=== PATIENT | male | born 1960 | race Caucasian/White ===

== ENCOUNTER → 2017-05-20 | Outpatient (CLI) | payer OTHER ==
[~2017-05-20] MED LIST: ASPIRIN E.C. 8181 MG PO; CELEBREX 1100 MG/CAP PO; CRESTOR20 MG PO; CRESTOR40 MG PO; DESYREL 50MG50 MG PO; FISH OIL CONCEN1 SGL PO; FISH OIL500 MG PO; GLUCOSAMINE & C1 CA1 PO; GLUCOSAMINE CHO1 CA1 PO; GLUCOSAMINE500 M2 PO; LISINOPRIL10 MG PO; LORTAB 5/500 501 TAB PO; MOTRIN 800800 MG/TAB PO; OMEGA 31000 MG PO; SEPTRA DS 8001 TAB PO; SIMVASTATIN80 MG PO; TOPROL XL 50MG50 MG PO; TRAZODONE50 MG PO; ULTRAM 50MG TAB50 MG PO; VIAGRA 25MG TAB25 MG PO; VITAMIN D1000 IU PO; VITAMIN D32000 I1 PO; ZESTRIL 10MG10 MG PO; ZOCOR 40MG40 MG PO
== END ==
LOC: ZCOL.LAB 16:39
DX: T81.30XA Disruption of wound, unspecified, initial encounter (principal)

== ENCOUNTER → 2017-05-20 | Outpatient (CLI) | payer OTHER | LOC: WCC 11:41 | DX: T81.31XA Disruption of external operation (surgical) wound, not elsewhere classified, initial encounter (principal); Z79.82 Long term (current) use of aspirin | CPT/HCPCS: 17717; 21064; 27517; A6021; A6207; A6212; G0463 ==

== ENCOUNTER → 2017-05-27 | Outpatient (CLI) | payer OTHER | LOC: WCC 05-25 09:12 | DX: T81.31XA Disruption of external operation (surgical) wound, not elsewhere classified, initial encounter (principal) | CPT/HCPCS: 17717; 21064; 27510; A6021; A6197; A6212 ==

== ENCOUNTER → 2017-06-03 | Outpatient (CLI) | payer OTHER | LOC: WCC 06-02 10:04 | DX: T81.31XA Disruption of external operation (surgical) wound, not elsewhere classified, initial encounter (principal) | CPT/HCPCS: 17717; 27517; A6207; A6212; G0463 ==

== ENCOUNTER → 2017-06-17 | Outpatient (CLI) | payer OTHER | LOC: WCC 06-16 10:12 | DX: T81.31XA Disruption of external operation (surgical) wound, not elsewhere classified, initial encounter (principal) | CPT/HCPCS: 17717; A6212; G0463 ==

== ENCOUNTER 2017-06-19 15:30 | Outpatient (RCR) | payer MEDICARE, OTHER ==
[2017-08-05] MEDS ORDERED: MIRALAX PA17 GM/Dose PO (08:53)
[2017-08-05] MEDS ORDERED: OXY IR5 MG PO (08:54)
[2017-08-05] MEDS ORDERED: ROBAXIN 50500 MG/TAB PO (08:55)
[2017-08-05] MEDS ORDERED: PROTONIX 40MG T40 MG PO (08:56)
[2017-08-05] MEDS ORDERED: ACIPHEX20 MG PO (08:56)
[2017-08-05] MEDS ORDERED: REGLAN 10MG10 MG/TAB PO (08:56)
[2017-08-05] MEDS ORDERED: ZANTAC 150150 MG (08:57)
[2017-08-05] MEDS ORDERED: CARAFATE 1GM1 G PO (08:57)
[2017-08-05] MEDS ORDERED: FLOMAX 0.40.4 MG/CAP PO (08:58)
[2017-08-05] MEDS ORDERED: DULCOLAX STOOL100 MG PO (08:59)
[2017-08-05] MEDS ORDERED: BACTRIM DS 8001 TAB PO (13:13)
== END 2017-09-13 ==
LOC: WSPT
DX: M54.5 Low back pain (principal); M54.6 Pain in thoracic spine
CPT/HCPCS: G8978-GP; G8979-GP

== ENCOUNTER → 2017-06-19 | Outpatient (CLI) | payer OTHER | LOC: WCC 06-18 10:09 | DX: T81.31XA Disruption of external operation (surgical) wound, not elsewhere classified, initial encounter (principal) | CPT/HCPCS: 17716; A6212; G0463 ==

== ENCOUNTER → 2017-06-22 | Outpatient (CLI) | payer OTHER | LOC: WCC 10:52 | DX: T81.31XA Disruption of external operation (surgical) wound, not elsewhere classified, initial encounter (principal) | CPT/HCPCS: 17716; A6212; G0463 ==

== ENCOUNTER → 2017-07-23 | Outpatient (CLI) | payer OTHER | LOC: ZCOL.LAB 16:42 | DX: S31.609A Unspecified open wound of abdominal wall, unspecified quadrant with penetration into peritoneal cavity, initial encounter (principal) ==

== ENCOUNTER 2017-08-05 08:31 | Day surgery (SDC) | payer MEDICARE, OTHER ==
[~2017-08-05] VITALS: Ht 180.3 cm; Wt 87.7 kg
[2017-08-05] MEDS ORDERED: MIRALAX PA17 GM/Dose PO (08:53)
[2017-08-05] MEDS ORDERED: OXY IR5 MG PO (08:54)
[2017-08-05] MEDS ORDERED: ROBAXIN 50500 MG/TAB PO (08:55)
[2017-08-05] MEDS ORDERED: REGLAN 10MG10 MG/TAB PO (08:56)
[2017-08-05] MEDS ORDERED: ACIPHEX20 MG PO (08:56)
[2017-08-05] MEDS ORDERED: PROTONIX 40MG T40 MG PO (08:56)
[2017-08-05] MEDS ORDERED: CARAFATE 1GM1 G PO (08:57)
[2017-08-05] MEDS ORDERED: ZANTAC 150150 MG (08:57)
[2017-08-05] MEDS ORDERED: FLOMAX 0.40.4 MG/CAP PO (08:58)
[2017-08-05] MEDS ORDERED: DULCOLAX STOOL100 MG PO (08:59)
[2017-08-05 09:18] VITALS: BP 117/79; PULSE 68; TEMP 97.5
[2017-08-05 12:10] VITALS: BP 121/68; PULSE 72; TEMP 97.3
[2017-08-05 12:25] VITALS: BP 115/70; PULSE 66
[2017-08-05 12:40] VITALS: BP 120/73; PULSE 66
[2017-08-05 12:55] VITALS: BP 1115/72; PULSE 67
[2017-08-05] MEDS ORDERED: BACTRIM DS 8001 TAB PO (13:13)
[2017-08-05 13:25] VITALS: BP 112/64; PULSE 66
== END 2017-08-05 13:53 | disposition home or self-care (01) ==
LOC: SDCO 08:31
DX: L02.211 Cutaneous abscess of abdominal wall (principal); I25.10 Atherosclerotic heart disease of native coronary artery without angina pectoris; K21.9 Gastro-esophageal reflux disease without esophagitis; I10 Essential (primary) hypertension; I25.2 Old myocardial infarction; F41.9 Anxiety disorder, unspecified; Z98.52 Vasectomy status; Z82.3 Family history of stroke
CPT/HCPCS: J0690; J1100; J2370; J2405; J2704; J2765; J3010; J7120

== ENCOUNTER 2017-08-09 17:22 | Emergency (ER) | payer MEDICARE, OTHER ==
[~2017-08-09] VITALS: Ht 180.3 cm; Wt 86.4 kg
[~2017-08-09 17:22] MED LIST changes: +ACIPHEX20 MG PO; +BACTRIM DS 8001 TAB PO; +CARAFATE 1GM1 G PO; +DULCOLAX STOOL100 MG PO; +FLOMAX 0.40.4 MG/CAP PO; +MIRALAX PA17 GM/Dose PO; +OXY IR5 MG PO; +PROTONIX 40MG T40 MG PO; +REGLAN 10MG10 MG/TAB PO; +ROBAXIN 50500 MG/TAB PO; +ZANTAC 150150 MG
[2017-08-09 17:35] VITALS: BP 100/65
[2017-08-09 18:04] VITALS: PULSE 78; TEMP 98.2
== END 2017-08-09 18:10 | disposition home or self-care (01) ==
LOC: COL.ER 17:22
DX: S31.109D Unspecified open wound of abdominal wall, unspecified quadrant without penetration into peritoneal cavity, subsequent encounter (principal); I25.10 Atherosclerotic heart disease of native coronary artery without angina pectoris; I25.2 Old myocardial infarction; I10 Essential (primary) hypertension; K21.9 Gastro-esophageal reflux disease without esophagitis; Z87.891 Personal history of nicotine dependence; Z79.82 Long term (current) use of aspirin; X58.XXXD Exposure to other specified factors, subsequent encounter

== ENCOUNTER 2018-01-13 19:04 | Inpatient (IN) | payer MEDICARE, OTHER ==
[~2018-01-13] VITALS: Ht 180.3 cm; Wt 88.4 kg
[2018-01-13 19:48] LABS: BASO % 0.3 % (0.0-2.0); EOS % 0.3 % (0-4.0); GRAN # 10.3 (1.4-6.5); GRAN % 87.7 % (42.2-75.2); HEMATOCRIT 49.4 % (42.0-52.0); HEMOGLOBIN 16.6 g/dl (13.5-18.0); LYMPH # 0.7 (1.2-3.4); LYMPH % 5.8 % (20.0-51.0); MEAN CELL VOLUME 88 fl (80.0-100.0); MEAN CORPUSCULAR HEMOGLOBIN 30 pg (27.0-31.0); MEAN CORPUSCULAR HGB CONC 34 g/dl (33.0-37.0); MEAN PLATELET VOLUME 10.6 fl (7.4-10.4); MONO # 0.7 (0.1-0.6); MONO % 5.5 % (1.7-9.3); PLATELET COUNT 180 K/mm3 (130-400); RED BLOOD COUNT 5.62 M/mm3 (4.20-5.60); REDCELL DISTRIBUTION WIDTH-CV 14.4 % (11.5-14.5)
[2018-01-13 19:59] LABS: BILIRUBIN,TOTAL 0.7 mg/dL (0.0-1.0); C-REACTIVE PROTEIN 0.6 mg/dL (0.0-0.9); CALCIUM 9.4 mg/dL (8.4-10.2); CREATININE, serum 0.77 mg/dL (0.66-1.25); TOTAL PROTEIN 7.9 gm/dL (6.4-8.2)
[2018-01-13 21:51] VITALS: BP 133/88; PULSE 81; TEMP 98.9
[2018-01-14 03:58] VITALS: BP 133/67; PULSE 72; TEMP 98.5
[2018-01-14 05:46] LABS: COLLECTION METHOD CLEAN CATCH
[2018-01-14 06:06] LABS: MUCOUS Present /lpf; PH 5 (5-8); SQUAMOUS EPITHELIAL None Seen /hpf; URINE APPEARANCE Clear; URINE BACTERIA None Seen /hpf; URINE BILIRUBIN Negative (NEGATIVE); URINE BLOOD Negative (NEGATIVE); URINE COLOR Yellow; URINE GLUCOSE Negative (NEGATIVE); URINE KETONE 1+ (NEGATIVE); URINE LEUKOCYTE ESTERASE Negative (NEGATIVE); URINE NITRATE Negative (NEGATIVE); URINE PROTEIN(semi-quant) Negative (NEGATIVE); URINE RBC 0-2 /hpf; URINE UROBILINOGEN >=4.0 mg/dL (NEGATIVE)
[2018-01-14 06:17] LABS: BASO % 0.6 % (0.0-2.0); EOS # 0.1 (0.0-0.7); GRAN # 4.8 (1.4-6.5); GRAN % 67.7 % (42.2-75.2); HEMATOCRIT 44.6 % (42.0-52.0); HEMOGLOBIN 14.7 g/dl (13.5-18.0); LYMPH # 1.6 (1.2-3.4); LYMPH % 22.6 % (20.0-51.0); MEAN CELL VOLUME 90 fl (80.0-100.0); MEAN CORPUSCULAR HEMOGLOBIN 30 pg (27.0-31.0); MEAN CORPUSCULAR HGB CONC 33 g/dl (33.0-37.0); MONO # 0.6 (0.1-0.6); PLATELET COUNT 163 K/mm3 (130-400); RED BLOOD COUNT 4.96 M/mm3 (4.20-5.60); REDCELL DISTRIBUTION WIDTH-CV 14.5 % (11.5-14.5)
[2018-01-14 07:12] VITALS: BP 123/77; PULSE 70; TEMP 99
[2018-01-14 11:21] VITALS: BP 121/66; PULSE 70; TEMP 98.2
[2018-01-14 15:19] VITALS: BP 116/68; PULSE 65; TEMP 98
[2018-01-14 20:17] VITALS: BP 121/68; PULSE 68; TEMP 98
[2018-01-15 00:02] VITALS: BP 123/68; PULSE 67; TEMP 98.2
[2018-01-15 05:05] VITALS: BP 117/64; PULSE 74; TEMP 98.6
[2018-01-15 07:15] LABS: BASO % 0.5 % (0.0-2.0); EOS # 0.1 (0.0-0.7); EOS % 3.6 % (0-4.0); GRAN % 51.4 % (42.2-75.2); HEMATOCRIT 37.3 % (42.0-52.0); LYMPH # 1.3 (1.2-3.4); LYMPH % 33.9 % (20.0-51.0); MEAN CELL VOLUME 91 fl (80.0-100.0); MEAN CORPUSCULAR HEMOGLOBIN 30 pg (27.0-31.0); MEAN CORPUSCULAR HGB CONC 33 g/dl (33.0-37.0); MONO # 0.4 (0.1-0.6); MONO % 10.3 % (1.7-9.3); PLATELET COUNT 117 K/mm3 (130-400); REDCELL DISTRIBUTION WIDTH-CV 14.2 % (11.5-14.5)
[2018-01-15 07:20] LABS: HEMOGLOBIN 12.4 g/dl (13.5-18.0)
[2018-01-15 07:30] LABS: CALCIUM 8.2 mg/dL (8.4-10.2); CREATININE, serum 0.69 mg/dL (0.66-1.25); POTASSIUM 3.4 mmol/L (3.4-5.0)
[2018-01-15 08:07] VITALS: BP 127/69; PULSE 59; TEMP 97.7
== END 2018-01-15 15:47 | disposition home or self-care (01) | DRG 390 ==
LOC: COL.ER 19:04 → SURG 21:10
PROVIDERS: Family Medicine; Surgery
DX: K56.600 Partial intestinal obstruction, unspecified as to cause (principal); I10 Essential (primary) hypertension; Z95.5 Presence of coronary angioplasty implant and graft; Z98.84 Bariatric surgery status; Z87.891 Personal history of nicotine dependence; G89.29 Other chronic pain
CPT/HCPCS: J1170; J2405; J7030; J7120

== ENCOUNTER 2018-07-11 18:07 | Emergency (ER) | payer MEDICARE, OTHER ==
[~2018-07-11] VITALS: Ht 180.3 cm; Wt 81.8 kg
[2018-07-11 18:14] VITALS: TEMP 97.7
[2018-07-11 18:30] LABS: COLLECTION METHOD CLEAN CATCH
[2018-07-11 18:32] LABS: BASO % 0.8 % (0.0-2.0); EOS # 0.1 (0.0-0.7); EOS % 2.4 % (0-4.0); GRAN # 2.5 (1.4-6.5); GRAN % 50.2 % (42.2-75.2); HEMATOCRIT 44.7 % (42.0-52.0); HEMOGLOBIN 14.9 g/dl (13.5-18.0); LYMPH % 38.5 % (20.0-51.0); MEAN CELL VOLUME 90 fl (80.0-100.0); MEAN CORPUSCULAR HEMOGLOBIN 30 pg (27.0-31.0); MEAN CORPUSCULAR HGB CONC 33 g/dl (33.0-37.0); MEAN PLATELET VOLUME 9.5 fl (7.4-10.4); MONO # 0.4 (0.1-0.6); MONO % 7.9 % (1.7-9.3); PLATELET COUNT 178 K/mm3 (130-400); RED BLOOD COUNT 4.98 M/mm3 (4.20-5.60); REDCELL DISTRIBUTION WIDTH-CV 15.9 % (11.5-14.5)
[2018-07-11 18:44] LABS: CALCIUM 9.4 mg/dL (8.4-10.2); CREATININE, serum 0.8 mg/dL (0.66-1.25); POTASSIUM 4.1 mmol/L (3.4-5.0)
[2018-07-11] MEDS ORDERED: ZOFRAN 4MG T4 MG/TAB PO (18:46)
[2018-07-11] MEDS ORDERED: NORCO 325 MG-51 TAB PO (18:46)
[2018-07-11 18:48] LABS: MUCOUS Present /lpf; PH 7 (5-8); SQUAMOUS EPITHELIAL None Seen /hpf; URINE APPEARANCE Hazy; URINE BACTERIA Rare /hpf; URINE BILIRUBIN Negative (NEGATIVE); URINE BLOOD 3+ (NEGATIVE); URINE COLOR Yellow; URINE GLUCOSE Negative (NEGATIVE); URINE KETONE Negative (NEGATIVE); URINE LEUKOCYTE ESTERASE Negative (NEGATIVE); URINE NITRATE Negative (NEGATIVE); URINE PROTEIN(semi-quant) Negative (NEGATIVE); URINE RBC >50 /hpf
[2018-07-11 19:28] VITALS: BP 133/87; PULSE 66
== END 2018-07-11 19:31 | disposition home or self-care (01) ==
LOC: COL.ER 18:07
PROVIDERS: Emergency Medicine
DX: N20.1 Calculus of ureter (principal); N23 Unspecified renal colic; Z79.82 Long term (current) use of aspirin
CPT/HCPCS: J1170; J1885; J2550

== ENCOUNTER 2019-10-19 14:00 | Outpatient (RCR) | payer MEDICARE, OTHER ==
[~2019-10-19 14:00] MED LIST changes: +NORCO 325 MG-51 TAB PO; +ZOFRAN 4MG T4 MG/TAB PO
== END 2019-10-27 07:59 | disposition home or self-care (01) ==
LOC: WSC 14:00
DX: M51.36 Other intervertebral disc degeneration, lumbar region (principal)

== ENCOUNTER 2020-02-13 11:49 | Emergency (ER) | payer MEDICARE, OTHER ==
[~2020-02-13] VITALS: Ht 180.3 cm; Wt 80.0 kg
[~2020-02-13 11:49] MED LIST changes: +COREG 3.123.125 MG/T PO; +MULTI VITAMINS1 TAB PO; +NAPROSYN 2250 MG/TAB PO; +PRILOTC PO
[2020-02-13 11:59] VITALS: TEMP 97.6
[2020-02-13] MEDS ORDERED: FLEXERIL 1010 MG/TAB PO (12:17)
[2020-02-13] MEDS ORDERED: PREDNISONE20 MG PO (12:17)
[2020-02-13 12:46] LABS: BASO % 0.7 % (0.0-2.0); EOS # 0.2 (0.0-0.7); EOS % 4.1 % (0-4.0); GRAN # 2.5 (1.4-6.5); GRAN % 56.6 % (42.2-75.2); HEMATOCRIT 40.5 % (42.0-52.0); HEMOGLOBIN 13.1 g/dl (13.5-18.0); LYMPH # 1.2 (1.2-3.4); LYMPH % 26.4 % (20.0-51.0); MEAN CELL VOLUME 89 fl (80.0-100.0); MEAN CORPUSCULAR HEMOGLOBIN 29 pg (27.0-31.0); MEAN CORPUSCULAR HGB CONC 32 g/dl (33.0-37.0); MEAN PLATELET VOLUME 10.4 fl (7.4-10.4); MONO # 0.5 (0.1-0.6); PLATELET COUNT 135 K/mm3 (130-400); RED BLOOD COUNT 4.57 M/mm3 (4.20-5.60); REDCELL DISTRIBUTION WIDTH-CV 13.7 % (11.5-14.5)
[2020-02-13 13:07] LABS: ALANINE AMINOTRANSFERASE 13 U/L (4-49); ALBUMIN 3.8 gm/dL (3.5-5.0); ALKALINE PHOSPHATASE 58 U/L (50-136); ANION GAP 6 mmol/L (7-16); AST,SGOT 20 U/L (15-37); BILIRUBIN,TOTAL 0.5 mg/dL (0.0-1.0); BLOOD UREA NITROGEN 23 mg/dL (9-20); CALCIUM 9.2 mg/dL (8.4-10.2); CARBON DIOXIDE 26 mmol/L (22-30); CHLORIDE 106 mmol/L (98-107); CREATININE, serum 0.94 (0.66-1.25); GLUCOSE 104 mg/dL (74-106); POTASSIUM 3.9 mmol/L (3.4-5.0); SODIUM 138 mmol/L (137-145); TOTAL PROTEIN 7.1 gm/dL (6.4-8.2)
[2020-02-13 13:50] LABS: TROPONIN-I < 0.012 ng/mL (0.000-0.035)
[2020-02-13 14:45] VITALS: BP 117/80; PULSE 71
== END 2020-02-13 14:45 | disposition home or self-care (01) ==
LOC: COL.ER 11:49
PROVIDERS: Emergency Medicine
DX: M54.12 Radiculopathy, cervical region (principal); I10 Essential (primary) hypertension; I25.10 Atherosclerotic heart disease of native coronary artery without angina pectoris; Z79.82 Long term (current) use of aspirin; Z95.5 Presence of coronary angioplasty implant and graft
CPT/HCPCS: J1170; J1885; J2270

== ENCOUNTER 2020-02-18 16:27 | Emergency (ER) | payer MEDICARE, OTHER ==
[~2020-02-18] VITALS: Ht 180.3 cm; Wt 81.8 kg
[~2020-02-18 16:27] MED LIST changes: +FLEXERIL 1010 MG/TAB PO; +PREDNISONE20 MG PO
[2020-02-18 16:31] VITALS: BP 116/76; TEMP 97.8
[2020-02-18] MEDS ORDERED: NORCO 325 MG-51 TAB PO (16:46)
[2020-02-18] MEDS ORDERED: ROBAXIN 75750 MG/TAB PO (16:46)
[2020-02-18 16:56] VITALS: PULSE 86
== END 2020-02-18 16:56 | disposition home or self-care (01) ==
LOC: COL.ER 16:27
DX: M54.12 Radiculopathy, cervical region (principal); I25.2 Old myocardial infarction; Z79.82 Long term (current) use of aspirin; Z87.891 Personal history of nicotine dependence; Z98.84 Bariatric surgery status

== ENCOUNTER 2020-02-26 15:28 | Emergency (ER) | payer MEDICARE, OTHER ==
[~2020-02-26] VITALS: Ht 180.3 cm; Wt 81.8 kg
[~2020-02-26 15:28] MED LIST changes: +ROBAXIN 75750 MG/TAB PO
[2020-02-26 15:35] VITALS: BP 118/83; PULSE 90; TEMP 98.4
[2020-02-26] MEDS ORDERED: LIORESAL 1010 MG/TAB PO (16:06)
== END 2020-02-26 16:32 | disposition home or self-care (01) ==
LOC: COL.ER 15:28
DX: M54.2 Cervicalgia (principal); M54.9 Dorsalgia, unspecified; I25.2 Old myocardial infarction; F17.210 Nicotine dependence, cigarettes, uncomplicated

== ENCOUNTER → 2020-03-08 | Outpatient (CLI) | payer MEDICARE, OTHER ==
[~2020-03-08] MED LIST changes: +LIORESAL 1010 MG/TAB PO
== END ==
LOC: COL.RAD 09:54
DX: M47.812 Spondylosis without myelopathy or radiculopathy, cervical region (principal); M48.02 Spinal stenosis, cervical region

== ENCOUNTER 2021-05-26 18:33 | Emergency (ER) | payer MEDICARE, OTHER ==
[~2021-05-26] VITALS: Ht 180.3 cm; Wt 77.3 kg
[2021-05-26 19:16] LABS: BASO # 0.1 (0.0-0.2); BASO % 0.9 % (0.0-2.0); EOS # 0.2 (0.0-0.7); EOS % 2.6 % (0-4.0); GRAN % 73.8 % (42.2-75.2); HEMOGLOBIN 12.3 g/dl (13.5-18.0); LYMPH # 1.1 (1.2-3.4); LYMPH % 15.8 % (20.0-51.0); MEAN CELL VOLUME 84 fl (80.0-100.0); MEAN CORPUSCULAR HEMOGLOBIN 26 pg (27.0-31.0); MEAN CORPUSCULAR HGB CONC 32 g/dl (33.0-37.0); MEAN PLATELET VOLUME 9.8 fl (7.4-10.4); MONO # 0.5 (0.1-0.6); MONO % 6.6 % (1.7-9.3); PLATELET COUNT 153 K/mm3 (130-400); RED BLOOD COUNT 4.66 M/mm3 (4.20-5.60); REDCELL DISTRIBUTION WIDTH-CV 14.2 % (11.5-14.5)
[2021-05-26 19:29] LABS: ALANINE AMINOTRANSFERASE 16 U/L (4-49); ALKALINE PHOSPHATASE 63 U/L (50-136); ANION GAP 8 mmol/L (7-16); AST,SGOT 25 U/L (15-37); BILIRUBIN,TOTAL 0.4 mg/dL (0.0-1.0); BLOOD UREA NITROGEN 17 mg/dL (9-20); CALCIUM 9.1 mg/dL (8.4-10.2); CARBON DIOXIDE 27 mmol/L (22-30); CHLORIDE 105 mmol/L (98-107); CREATININE, serum 1.35 (0.66-1.25); GLUCOSE 105 mg/dL (74-106); LIPASE 121 U/L (23-300); POTASSIUM 4.2 mmol/L (3.4-5.0); SODIUM 140 mmol/L (137-145); TOTAL PROTEIN 7.2 gm/dL (6.4-8.2)
[2021-05-26 19:30] LABS: C-REACTIVE PROTEIN < 0.5 mg/dL (0.0-0.9)
[2021-05-26 20:00] LABS: COLLECTION METHOD CLEAN CATCH
[2021-05-26 20:07] LABS: MUCOUS Present /lpf; PH 6 (5-8); SQUAMOUS EPITHELIAL None Seen /hpf; URINE APPEARANCE Cloudy; URINE BACTERIA None Seen /hpf; URINE BILIRUBIN Negative (NEGATIVE); URINE BLOOD 3+ (NEGATIVE); URINE COLOR Red; URINE GLUCOSE Negative (NEGATIVE); URINE KETONE Negative (NEGATIVE); URINE LEUKOCYTE ESTERASE Negative (NEGATIVE); URINE NITRATE Negative (NEGATIVE); URINE PROTEIN(semi-quant) 2+ (NEGATIVE); URINE RBC >50 /hpf; URINE UROBILINOGEN Negative (NEGATIVE)
[2021-05-26 21:12] VITALS: BP 124/86; PULSE 62; TEMP 97.8
== END 2021-05-26 21:21 | disposition home or self-care (01) ==
LOC: COL.ER 18:33
PROVIDERS: Family Medicine
DX: N20.1 Calculus of ureter (principal)
CPT/HCPCS: J1885; J2405; J7120

== ENCOUNTER 2021-09-02 11:29 | Emergency (ER) | payer MEDICARE, OTHER ==
[~2021-09-02] VITALS: Ht 180.3 cm; Wt 75.5 kg
[2021-09-02 12:10] LABS: COLLECTION METHOD CLEAN CATCH
[2021-09-02 12:26] LABS: AMORPHOUS CRYSTAL Present (NOT PRESENT); SQUAMOUS EPITHELIAL None Seen /hpf (0-10); URINE BACTERIA Rare /hpf (NONE SEEN); URINE RBC >50 /hpf (0-2)
[2021-09-02 12:27] LABS: URINE APPEARANCE Cloudy (CLEAR/HAZY); URINE COLOR Yellow (YELLOW)
[2021-09-02 12:28] LABS: PH 7 (5-8); URINE BILIRUBIN Negative (NEGATIVE); URINE BLOOD 2+ (NEGATIVE); URINE GLUCOSE Negative (NEGATIVE); URINE KETONE Trace (NEGATIVE); URINE LEUKOCYTE ESTERASE Negative (NEGATIVE); URINE NITRATE Negative (NEGATIVE); URINE PROTEIN(semi-quant) Negative (NEGATIVE); URINE UROBILINOGEN Negative (NEGATIVE)
[2021-09-02 13:30] LABS: BASO % 0.5 % (0.0-2.0); EOS % 0.6 % (0.0-4.0); GRAN # 4.8 K/mm3 (1.4-6.5); GRAN % 75.7 % (42.2-75.2); HEMATOCRIT 41.3 % (42.0-52.0); HEMOGLOBIN 13.2 g/dl (13.5-18.0); LYMPH # 0.9 K/mm3 (1.2-3.4); LYMPH % 13.3 % (20.0-51.0); MEAN CELL VOLUME 78 fl (80.0-100.0); MEAN CORPUSCULAR HEMOGLOBIN 25 pg (27-31); MEAN CORPUSCULAR HGB CONC 32 g/dl (33.0-37.0); MONO # 0.6 K/mm3 (0.1-0.6); MONO % 9.7 % (1.7-9.3); PLATELET COUNT 173 K/mm3 (130-400); RED BLOOD COUNT 5.29 M/mm3 (4.20-5.60); REDCELL DISTRIBUTION WIDTH-CV 14.8 % (11.5-14.5)
[2021-09-02 13:47] LABS: ALBUMIN 3.6 gm/dL (3.4-4.8); BILIRUBIN,TOTAL 0.6 mg/dL (0.2-1.2); C-REACTIVE PROTEIN 0.73 mg/dL (0.00-0.50); CALCIUM 9.6 mg/dL (8.4-10.2); CREATININE, serum 1.69 mg/dL (0.72-1.25); POTASSIUM 4.2 mmol/L (3.5-4.5); TOTAL PROTEIN 7.7 gm/dL (6.2-8.1)
[2021-09-02] MEDS ORDERED: PERCOCET 325 MG1 TA2 PO (16:08)
[2021-09-02] MEDS ORDERED: OMNICEF 300MG300 MG PO (16:09)
[2021-09-02 16:16] VITALS: BP 132/75; PULSE 77; TEMP 98.2
== END 2021-09-02 16:19 | disposition home or self-care (01) ==
LOC: COL.ER 11:29
PROVIDERS: Family Medicine
DX: N13.2 Hydronephrosis with renal and ureteral calculous obstruction (principal); I25.10 Atherosclerotic heart disease of native coronary artery without angina pectoris; I25.2 Old myocardial infarction; Z79.82 Long term (current) use of aspirin
CPT/HCPCS: J1885; J2270; J2405; J7120; Q9967

== ENCOUNTER 2021-09-03 09:56 | Day surgery (SDC) | payer MEDICARE, OTHER ==
[~2021-09-03] VITALS: Ht 180.3 cm; Wt 74.5 kg
[~2021-09-03 09:56] MED LIST changes: +OMNICEF 300MG300 MG PO; +PERCOCET 325 MG1 TA2 PO
[2021-09-03 10:42] VITALS: BP 106/82; PULSE 95; TEMP 97.5
[2021-09-03 11:42] VITALS: TEMP 98
[2021-09-03 12:00] VITALS: BP 109/66; PULSE 65
--- NOTE | 2021-09-03 12:00 | NUR ---
Patient to room 8 per cart from PACU accompanied by Eneida BALDWIN and is awake and alert. Temp 97.1 and room air sats 96%. Eating ice chips. IV fluids infusing. Denies pain or nausea. Siderails up x2 and call light in reach. Allowed to rest.
[2021-09-03 12:15] VITALS: BP 102/71; PULSE 66
--- NOTE | 2021-09-03 12:15 | NUR ---
IV to INT and assisted patient up to the bathroom. Gait is steady. Voids and returns to room. Given muffin to eat and glass of water.
[2021-09-03 12:30] VITALS: BP 102/68; PULSE 61
--- NOTE | 2021-09-03 12:30 | NUR ---
Resting and denies pain or nausea. Room air sats 98%. Tolerates snack well.
--- NOTE | 2021-09-03 12:43 | NUR ---
INT discontinued and site is free of redness or swelling. Dresses self. Daughter here for ride home.
--- NOTE | 2021-09-03 12:50 | NUR ---
Dismissal instructions given and voices understanding of these. Provided office number for questions and concerns.
--- NOTE | 2021-09-03 12:53 | NUR ---
Patient dismissed to home driven by daughter and assisted into vehicle with instructions in hand.
== END 2021-09-03 12:53 | disposition home or self-care (01) ==
LOC: SDCO 09:56
DX: N13.0 Hydronephrosis with ureteropelvic junction obstruction (principal); I10 Essential (primary) hypertension; I25.10 Atherosclerotic heart disease of native coronary artery without angina pectoris; I25.2 Old myocardial infarction; G89.29 Other chronic pain; E78.5 Hyperlipidemia, unspecified; K21.9 Gastro-esophageal reflux disease without esophagitis; Z95.818 Presence of other cardiac implants and grafts; Z87.891 Personal history of nicotine dependence; Z79.82 Long term (current) use of aspirin; Z79.899 Other long term (current) drug therapy; Z79.1 Long term (current) use of non-steroidal anti-inflammatories (NSAID); Z79.891 Long term (current) use of opiate analgesic
CPT/HCPCS: C1769; J0690; J1100; J1885; J2250; J2405; J2704; J3010; J7120; Q9967

== ENCOUNTER 2021-10-07 17:50 | Emergency (ER) | payer MEDICARE, OTHER ==
[~2021-10-07] VITALS: Ht 180.3 cm; Wt 75.0 kg
[2021-10-07 17:55] VITALS: BP 133/80; PULSE 70; TEMP 97.7
== END 2021-10-07 19:36 | disposition home or self-care (01) ==
LOC: COL.ER 17:50
DX: S20.20XA Contusion of thorax, unspecified, initial encounter (principal); I10 Essential (primary) hypertension; I25.2 Old myocardial infarction; Z79.82 Long term (current) use of aspirin; Z79.899 Other long term (current) drug therapy; W22.8XXA Striking against or struck by other objects, initial encounter

== ENCOUNTER 2021-10-23 20:02 | Emergency (ER) | payer MEDICARE, OTHER ==
[~2021-10-23] VITALS: Ht 180.3 cm; Wt 82.3 kg
[2021-10-23 20:36] LABS: BASO % 0.7 % (0.0-2.0); EOS # 0.2 K/mm3 (0.0-0.7); EOS % 2.4 % (0.0-4.0); GRAN # 4.2 K/mm3 (1.4-6.5); GRAN % 68.6 % (42.2-75.2); HEMATOCRIT 40.2 % (42.0-52.0); HEMOGLOBIN 12.9 g/dl (13.5-18.0); LYMPH # 1.3 K/mm3 (1.2-3.4); LYMPH % 21.2 % (20.0-51.0); MEAN CELL VOLUME 79 fl (80.0-100.0); MEAN CORPUSCULAR HEMOGLOBIN 25 pg (27-31); MEAN CORPUSCULAR HGB CONC 32 g/dl (33.0-37.0); MEAN PLATELET VOLUME 9.8 fl (7.4-10.4); MONO # 0.4 K/mm3 (0.1-0.6); MONO % 6.9 % (1.7-9.3); PLATELET COUNT 174 K/mm3 (130-400); RED BLOOD COUNT 5.12 M/mm3 (4.20-5.60)
[2021-10-23 20:52] LABS: ALBUMIN 3.1 gm/dL (3.4-4.8); BILIRUBIN,TOTAL 0.3 mg/dL (0.2-1.2); C-REACTIVE PROTEIN 3.2 mg/dL (0.00-0.50); CREATININE, serum 0.93 mg/dL (0.72-1.25); POTASSIUM 5.1 mmol/L (3.5-4.5); TOTAL PROTEIN 7.6 gm/dL (6.2-8.1)
[2021-10-23 23:50] VITALS: BP 113/69; PULSE 63; TEMP 97.6
== END 2021-10-24 00:03 | disposition home or self-care (01) ==
LOC: COL.ER 20:02
PROVIDERS: Emergency Medicine
DX: K59.00 Constipation, unspecified (principal); I10 Essential (primary) hypertension; I25.2 Old myocardial infarction; E78.00 Pure hypercholesterolemia, unspecified; Z98.84 Bariatric surgery status; Z95.5 Presence of coronary angioplasty implant and graft; Z98.52 Vasectomy status; Z98.890 Other specified postprocedural states; Z79.82 Long term (current) use of aspirin
CPT/HCPCS: J2212; J2270; J7030; Q9967

== ENCOUNTER → 2021-12-31 | Outpatient (CLI) | payer MEDICARE, OTHER ==
[~2021-12-31] MED LIST changes: +CELEBREX 200MG200 MG PO; +CEPHALEXIN500 M1 PO; +CYMBALTA 60MG60 MG PO; +DESOWEN0.05% TP; +DIPROLENE CR15GM TP; +NAPROSYN500 MG PO; +UROCIT-K 1010 MEQ PO; +VITAMIN D31000 I1 PO; +[UNRECOGNIZED DRUG - OTHER] PO
== END ==
LOC: ZCOL.LAB 15:47
DX: S31.109A Unspecified open wound of abdominal wall, unspecified quadrant without penetration into peritoneal cavity, initial encounter (principal)

== ENCOUNTER 2022-01-16 09:28 | Day surgery (SDC) | payer MEDICARE, OTHER ==
[~2022-01-16] VITALS: Ht 180.3 cm; Wt 79.4 kg
[~2022-01-16 09:28] MED LIST changes: -CELEBREX 200MG200 MG PO; -CEPHALEXIN500 M1 PO; -CYMBALTA 60MG60 MG PO; -DESOWEN0.05% TP; -DIPROLENE CR15GM TP; -UROCIT-K 1010 MEQ PO; -VITAMIN D31000 I1 PO; -[UNRECOGNIZED DRUG - OTHER] PO
[2022-01-16] MEDS ORDERED: DIPROLENE CR15GM TP (10:35)
[2022-01-16] MEDS ORDERED: [UNRECOGNIZED DRUG - OTHER] PO (10:35)
[2022-01-16] MEDS ORDERED: VITAMIN D31000 I1 PO (10:37)
[2022-01-16] MEDS ORDERED: CELEBREX 200MG200 MG PO (10:39)
[2022-01-16] MEDS ORDERED: CEPHALEXIN500 M1 PO (10:39)
[2022-01-16] MEDS ORDERED: CYMBALTA 60MG60 MG PO (10:44)
[2022-01-16] MEDS ORDERED: UROCIT-K 1010 MEQ PO (10:44)
[2022-01-16] MEDS ORDERED: DESYREL 50MG50 MG PO (10:45)
[2022-01-16] MEDS ORDERED: DESOWEN0.05% TP (10:46)
[2022-01-16 10:53] VITALS: BP 141/78; PULSE 56; TEMP 97.3
[2022-01-16 12:30] VITALS: BP 128/77; PULSE 61; TEMP 97.4
[2022-01-16 12:45] VITALS: BP 135/79; PULSE 57
[2022-01-16 12:58] VITALS: BP 136/77; PULSE 56
--- NOTE | 2022-01-16 13:15 | NUR ---
1230 PT RETURNED TO BAY 6 VIA CART. ALERT AND ORIENTED. MONITORS ATTACHED, INTERVALS AND ALARMS SET. VSS. PT DENIES PAIN OR NAUSEA. OPERATIVE SITE CLEAN AND DRY. CRACKERS AND WATER PROVIDED. 1240 DR. CALDERON CALLED FOR CLARIFICATION ON DAILY WOUND PACKING INSTRUCTIONS WITH GLENNY IN PLACE. 1245 VSS. PT TOLERATING FOOD AND DRINK WELL. DR. CALDERON IN TO SPEAK WITH PT AND FAMILY ABOUT DRESSING CHANGE. 1258 PT REQUEST TO GET UP TO RESTROOM. VSS. IV REMOVED WITHOUT COMPLCAITONS. PT UP TO RESTROOM, ABLE TO VOID WIHTOUT DIFFICULTY. PT ALLOWED TO DRESS. REVIEWED DISCHARGE INSTRUCTIONS AND EDUCATION PACKET, ANSWERED ALL QUESTIONS. 1315 PT TRANSFERED VIA HWEELCHAIR TO [employer] VEHICLE TO BE DRIVEN HOME BY DAUGHTER.
[2022-01-16 14:23] VITALS: BP 133/83; PULSE 58
== END 2022-01-16 13:15 | disposition home or self-care (01) ==
LOC: SDCO 09:28
DX: L02.211 Cutaneous abscess of abdominal wall (principal); K21.9 Gastro-esophageal reflux disease without esophagitis
CPT/HCPCS: J2704; J3010; J7120

== ENCOUNTER → 2022-02-11 | Outpatient (CLI) | payer MEDICARE, OTHER ==
[~2022-02-11] MED LIST changes: +CELEBREX 200MG200 MG PO; +CEPHALEXIN500 M1 PO; +CYMBALTA 60MG60 MG PO; +DESOWEN0.05% TP; +DIPROLENE CR15GM TP; +UROCIT-K 1010 MEQ PO; +VITAMIN D31000 I1 PO; +[UNRECOGNIZED DRUG - OTHER] PO
== END ==
LOC: ZCOL.LAB 16:23
DX: L02.211 Cutaneous abscess of abdominal wall (principal); S31.109A Unspecified open wound of abdominal wall, unspecified quadrant without penetration into peritoneal cavity, initial encounter

== ENCOUNTER 2022-05-29 09:27 | Day surgery (SDC) | payer MEDICARE, OTHER ==
[~2022-05-29] VITALS: Ht 180.3 cm; Wt 76.2 kg
[2022-05-29 10:56] VITALS: BP 115/72; PULSE 73; TEMP 97.9
[2022-05-29 12:00] VITALS: BP 110/89; PULSE 65
--- NOTE | 2022-05-29 12:00 | NUR ---
Patient returns to room 6 per cart from PACU accompanied by Deo BALDWIN and patient is awake and alert. Temp 97.9 and room air sats 99%. Dressing clean and dry on the upper abdomen. IV fluids infusing. Daughter in room. Call light in reach. Siderails up x2.
[2022-05-29 12:15] VITALS: BP 121/78; PULSE 56
--- NOTE | 2022-05-29 12:15 | NUR ---
Taking ice chips. Denies pain or nausea.
[2022-05-29 12:30] VITALS: BP 118/73; PULSE 56
--- NOTE | 2022-05-29 12:30 | NUR ---
Contines to rest without complaints. Denies pain or nausea.
[2022-05-29 12:45] VITALS: BP 127/76; PULSE 54
--- NOTE | 2022-05-29 12:45 | NUR ---
Room air sats 98%. Offered snack and refuses. States that he is going to get lunch on the way home.
[2022-05-29 12:55] VITALS: TEMP 98.4
--- NOTE | 2022-05-29 12:55 | NUR ---
IV discontinued and site is free of redness or swelling. Patient dresses self.
--- NOTE | 2022-05-29 13:09 | NUR ---
Rates pain at 4/10. States is having more soreness with movement. Medicated with [place] 5mg one tab in preparation for discharge and ride home.
--- NOTE | 2022-05-29 13:12 | NUR ---
Dismissal instructions given and voices understanding of these. Informed patient that the office will call him with follow up appointment date and time.
--- NOTE | 2022-05-29 13:21 | NUR ---
Patient dismissed to home driven by daughter and taken to car per wheelchair and assisted into vehicle with instructions in hand.
== END 2022-05-29 13:21 | disposition home or self-care (01) ==
LOC: SDCO 09:27
DX: T81.598A Other complications of foreign body accidentally left in body following other procedure, initial encounter (principal); S31.109D Unspecified open wound of abdominal wall, unspecified quadrant without penetration into peritoneal cavity, subsequent encounter; I10 Essential (primary) hypertension; I25.2 Old myocardial infarction; Z87.891 Personal history of nicotine dependence; Y84.8 Other medical procedures as the cause of abnormal reaction of the patient, or of later complication, without mention of misadventure at the time of the procedure; X58.XXXD Exposure to other specified factors, subsequent encounter
CPT/HCPCS: J0690; J2405; J2704; J3010; J7120